=== PATIENT | male | born 2000 | race Caucasian/White ===

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

== ENCOUNTER 2021-04-21 18:16 | Emergency (ER) | payer OTHER ==
[2021-04-21] MEDS ORDERED: Sodium Chloride 0.9% 1,000 ML IV SCH (19:45)
[2021-04-21] MEDS ORDERED: Sodium Chloride 0.9% 10 ML SDV FLUSH ONE (20:00)
[2021-04-21] MEDS ORDERED: Iopamidol 612 MG/ML 100 ML Bottle IVPUSH ONE (20:00)
[2021-04-21 21:42] LABS: C. TRACHOMATIS BY PCR NOT DETECTED; N. GONORRHOEAE BY PCR NOT DETECTED
== END 2021-04-21 22:10 | disposition home or self-care (01) ==
LOC: JD.ED 18:16
DX: N50.811 Right testicular pain (principal)
CPT/HCPCS: 72193; 72193-26; 76870; 76870-26; 81001; 87491; 87591; 93975; 99284-25; 99285; J7030; Q9967

== ENCOUNTER 2022-12-27 06:45 | Emergency (ER) | payer OTHER ==
[2022-12-27] MEDS ORDERED: Acetaminophen 325 MG Tab PO ONE (07:09)
[2022-12-27 08:06] LABS: INFLUENZA A NAA NEGATIVE (NEGATIVE)
== END 2022-12-27 09:22 | disposition home or self-care (01) ==
LOC: JD.ED 06:45
DX: J02.9 Acute pharyngitis, unspecified (principal); J06.9 Acute upper respiratory infection, unspecified; J40 Bronchitis, not specified as acute or chronic
CPT/HCPCS: 71045; 87502; 87651; 99284; A9270

== ENCOUNTER 2024-06-21 01:53 | Emergency (ER) | payer OTHER ==
[2024-06-21] MEDS: Ketorolac 30 MG/ML SDV IVPUSH ONE (02:19)
[2024-06-21] MEDS: Ondansetron 4 MG/2 ML SDV IVPUSH ONE (02:19)
[2024-06-21] MEDS: Acetaminophen 325 MG Tab PO ONE (02:20)
[2024-06-21] MEDS: HYDROmorphone 1 MG/ML Syringe IVPUSH ONE (02:20)
[2024-06-21] MEDS: Sodium Chloride 0.9% 1,000 ML IV ONE (02:25)
[2024-06-21 02:32] LABS: BASOPHILS PERCENT AUTO 0.3 % (0.0-1.0); EOSINOPHILS ABSOLUTE AUTO 0.1 K/mm3 (0.0-0.4); HEMATOCRIT 43.7 % (42.0-52.0); HEMOGLOBIN 15.6 gm/dl (14.0-18.0); IMMATURE GRAN ABSOLUTE AUTO 0.02 K/mm3 (0.00-0.05); IMMATURE GRAN PERCENT AUTO 0.3 % (0.0-0.4); LYMPHOCYTES ABSOLUTE AUTO 3.4 K/mm3 (1.0-4.8); LYMPHOCYTES PERCENT AUTO 47.8 % (24.0-44.0); MEAN CORPUSCULAR HEMOGLOBIN 29.5 pg (28.0-32.0); MEAN CORPUSCULAR HGB CONC 35.7 g/dl (32.0-36.0); MEAN CORPUSCULAR VOLUME 82.8 fl (83.0-99.0); MONOCYTES ABSOLUTE AUTO 0.6 K/mm3 (0.0-0.8); MONOCYTES PERCENT AUTO 7.7 % (0.0-8.0); NEUTROPHILS ABSOLUTE AUTO 3.1 K/mm3 (1.8-7.7); NEUTROPHILS PERCENT AUTO 42.9 % (41.0-71.0); PLATELET COUNT,PLT 252 K/mm3 (150-400); RED BLOOD CELL COUNT 5.28 M/mm3 (4.52-5.90); WHITE BLOOD CELL COUNT,WBC 7.14 K/mm3 (3.9-11.3)
[2024-06-21 02:54] LABS: PROTHROMBIN TIME 10.6 SECONDS (9.7-12.0)
[2024-06-21 03:09] LABS: A/G RATIO 1.1 (1-2); ALBUMIN 3.8 g/dl (3.4-5.0); ANION GAP 11.6 (5-15); BILIRUBIN TOTAL 0.8 mg/dL (0.2-1.0); CALCIUM 9.1 mg/dL (8.5-10.1); EST CRCL DRUG DOSING (CG) 94.86 mL/min; POTASSIUM,K 3.6 mEq/L (3.5-5.1); PROTEIN TOTAL,TP 7.4 g/dl (6.4-8.2)
== END 2024-06-21 04:42 | disposition home or self-care (01) ==
LOC: JD.ED 01:53
DX: N43.3 Hydrocele, unspecified (principal); Z79.899 Other long term (current) drug therapy
CPT/HCPCS: 36415; 76870; 80053; 85025; 85610; 93975; 96361; 96374; 96375; 99284; A9270; J1171; J1885; J2405; J7030